=== PATIENT | male | born 2000 | race Caucasian/White ===

== ENCOUNTER 2021-06-03 11:25 | Emergency (ER) | payer MEDICAID ==
[~2021-06-03] VITALS: Ht 167.6 cm; Wt 83.9 kg
[2021-06-03 11:35] VITALS: BP 121/81
--- NOTE | 2021-06-03 11:40 | NUR ---
TENT3
[2021-06-03] MEDS ORDERED: NAPR-1704 PO (11:50)
--- NOTE | 2021-06-03 12:30 | NUR ---
NO NURSING CARE RENDERED. Patient discharged with v/s stable. Written and verbal after care instructions given and explained. Patient alert, oriented and verbalized understanding of instructions. Ambulatory with steady gait. All questions addressed prior to discharge. ID band removed. Patient advised to follow up with PMD. Rx of NAPROSYN given. Patient educated on indication of medication including possible reaction and side effects. Opportunity to ask questions provided and answered.
== END 2021-06-03 11:44 | disposition home or self-care (01) ==
LOC: MED 11:25
DX: S76.102A Unspecified injury of left quadriceps muscle, fascia and tendon, initial encounter (principal); M79.9 Soft tissue disorder, unspecified; F17.210 Nicotine dependence, cigarettes, uncomplicated; X58.XXXA Exposure to other specified factors, initial encounter; Y93.89 Activity, other specified; Y92.89 Other specified places as the place of occurrence of the external cause; Y99.8 Other external cause status
CPT/HCPCS: 99282

== ENCOUNTER 2021-07-27 08:10 | Emergency (ER) | payer MEDICAID ==
[~2021-07-27] VITALS: Ht 167.6 cm; Wt 83.7 kg
[~2021-07-27 08:10] MED LIST: NAPR-1704 PO
[2021-07-27 08:17] VITALS: BP 141/95
[2021-07-27] MEDS ORDERED: ALBUTEROL SULFATE/IPRATROPIU 3 ML SOL IH ONE (08:50)
[2021-07-27] MEDS ORDERED: IBUPROFEN 600 MG TAB PO ONE (08:50)
[2021-07-27] MEDS ORDERED: ACETAMINOPHEN EXTRA STRENGTH 500 MG TAB PO ONE (08:50)
[2021-07-27] MEDS ORDERED: ALBU0.0912 INH (10:21)
[2021-07-27] MEDS ORDERED: IBUP-2218 PO (10:21)
[2021-07-27 10:36] VITALS: BP 116/86
== END 2021-07-27 10:36 | disposition home or self-care (01) ==
LOC: MED 08:10
DX: R09.1 Pleurisy (principal); R03.0 Elevated blood-pressure reading, without diagnosis of hypertension; F17.210 Nicotine dependence, cigarettes, uncomplicated; F20.9 Schizophrenia, unspecified; Z71.6 Tobacco abuse counseling; Z88.2 Allergy status to sulfonamides; Z79.899 Other long term (current) drug therapy; Z98.890 Other specified postprocedural states
CPT/HCPCS: 71045; 81002; 93005; 94640; 94760; 99283; Q0092

== ENCOUNTER 2022-04-04 12:39 | Emergency (ER) | payer MEDICAID ==
[~2022-04-04] VITALS: Ht 167.6 cm; Wt 85.3 kg
[~2022-04-04 12:39] MED LIST changes: +ALBU0.0912 INH; +IBUP-2218 PO
[2022-04-04 12:53] VITALS: BP 130/75
[2022-04-04] MEDS ORDERED: IBUP-1842 PO (15:03)
--- NOTE | 2022-04-04 15:07 | NUR ---
Patient discharged with v/s stable. Written and verbal after care instructions given. Patient alert, oriented and verbalized understanding of instructions. Ambulatory with steady gait. All questions addressed prior to discharge. ID band removed. Patient advised to follow up with PMD. Rx of Ibuprofen given. Opportunity to ask questions provided and answered. WORK NOTE HANDED TO PATIENT. DISCHARGED BY KANCHAN MULLER.
--- NOTE | 2022-04-04 15:11 | NUR ---
The patient's care was reviewed and supervised by ED Agency Nurse 9, RN, RN.
== END 2022-04-04 15:45 | disposition home or self-care (01) ==
LOC: MED 12:39
DX: S70.02XA Contusion of left hip, initial encounter (principal); J45.909 Unspecified asthma, uncomplicated; W18.30XA Fall on same level, unspecified, initial encounter; Y93.89 Activity, other specified; Y92.89 Other specified places as the place of occurrence of the external cause; Y99.8 Other external cause status
CPT/HCPCS: 73502; 99283

== ENCOUNTER 2022-10-31 14:27 | Emergency (ER) | payer MEDICAID, OTHER ==
[~2022-10-31] VITALS: Ht 167.6 cm; Wt 81.6 kg
[~2022-10-31 14:27] MED LIST changes: +IBUP-1842 PO
[2022-10-31 14:49] VITALS: BP 169/97; PULSE 94; RESP 20; TEMP 98.8; O2SAT 97
--- NOTE | 2022-10-31 15:00 | NUR ---
22 Y/O MALE BIB SELF, C/O CP THAT RADIATES TO RIGHT SIDE OF CHEST AND LEFT ARM. STATES PAIN COMES ON WHEN HE IS MOVING. REPORTS CRAMPING SENSATOIN, 11/02. STATES HE HAS BEEN TAKING ASPIRIN AT HOME FOR PAIN. A&OX4, AMBULATES WITH STEADY GAIT. CALL LIGHT WITHIN REACH. ALLERGY: SULFA
--- NOTE | 2022-10-31 15:00 | NUR ---
PT WAS EVALUATED BY PA IN TRIAGE. EKG PERFORMED IN TRIAGE.
--- NOTE | 2022-10-31 15:05 | NUR ---
PT AMB TO BED 4
[2022-10-31 15:26] VITALS: O2SAT 97
[2022-10-31 15:55] VITALS: BP 135/88; PULSE 80; RESP 20; TEMP 98.8; O2SAT 99
--- NOTE | 2022-10-31 15:55 | NUR ---
Patient discharged with v/s stable. Written and verbal after care instructions FOR NON SPECIFIC CHEST PAIN AND TOBACCO USE DISORDER given and explained. Patient verbalized understanding. Ambulatory with steady gait. All questions addressed prior to discharge. Advised to follow up with PMD. WORK NOTE, COPY OF XRAY AND EKG PROVIDED.
--- NOTE | 2022-10-31 15:56 | NUR ---
The patient's care was reviewed and supervised by Claire Stallings, RN, RN.
== END 2022-10-31 15:55 | disposition home or self-care (01) ==
LOC: MED 14:27
DX: R07.9 Chest pain, unspecified (principal); R03.0 Elevated blood-pressure reading, without diagnosis of hypertension; J45.909 Unspecified asthma, uncomplicated; Z88.2 Allergy status to sulfonamides; Z79.899 Other long term (current) drug therapy
CPT/HCPCS: 71045; 93005; 99283; Q0092

== ENCOUNTER 2023-03-31 13:22 | Emergency (ER) | payer OTHER ==
[~2023-03-31] VITALS: Ht 165.1 cm; Wt 83.9 kg
[2023-03-31 13:51] VITALS: BP 139/84; PULSE 75; RESP 18; TEMP 98; O2SAT 98
[2023-03-31 15:43] VITALS: BP 139/84; PULSE 75; RESP 18; TEMP 98; O2SAT 98
== END 2023-03-31 15:43 | disposition home or self-care (01) ==
LOC: MED 13:22
DX: R42 Dizziness and giddiness (principal); R06.02 Shortness of breath; R07.9 Chest pain, unspecified; R11.0 Nausea; R25.1 Tremor, unspecified; T43.595A Adverse effect of other antipsychotics and neuroleptics, initial encounter; J45.909 Unspecified asthma, uncomplicated; F20.9 Schizophrenia, unspecified; F41.9 Anxiety disorder, unspecified; Z79.899 Other long term (current) drug therapy; Z79.1 Long term (current) use of non-steroidal anti-inflammatories (NSAID); Z88.2 Allergy status to sulfonamides; Y92.89 Other specified places as the place of occurrence of the external cause
CPT/HCPCS: 99281

== ENCOUNTER 2023-09-07 12:41 | Emergency (ER) | payer OTHER ==
[~2023-09-07] VITALS: Ht 167.6 cm; Wt 83.9 kg
[2023-09-07 13:02] VITALS: BP 124/85; PULSE 88; RESP 17; TEMP 98.9; O2SAT 97
== END 2023-09-07 14:30 | disposition home or self-care (01) ==
LOC: MED 12:41
DX: F20.9 Schizophrenia, unspecified (principal); J45.909 Unspecified asthma, uncomplicated; Z76.0 Encounter for issue of repeat prescription; Z79.1 Long term (current) use of non-steroidal anti-inflammatories (NSAID); Z79.899 Other long term (current) drug therapy; Z88.2 Allergy status to sulfonamides
CPT/HCPCS: 99281